=== PATIENT | female | born 1960 | race Caucasian/White ===

== ENCOUNTER 2016-09-17 01:48 | Emergency (ER) | payer OTHER ==
[~2016-09-17] VITALS: Ht 172.7 cm; Wt 99.8 kg
[2016-09-17] MEDS ORDERED: NEURONTIN 300300 M1 (02:06)
[2016-09-17] MEDS ORDERED: DILAUDID 2 MG TA2 MG (02:07)
[2016-09-17] MEDS ORDERED: GRALISE600 MG (02:07)
[2016-09-17] MEDS ORDERED: FENTANYL PA25 MCG/HR TOP (02:08)
[2016-09-17] MEDS ORDERED: IMITREX 50 MG T50 MG (02:09)
[2016-09-17 03:05] VITALS: BP 136/95
== END 2016-09-17 03:05 | disposition home or self-care (01) ==
LOC: ER 01:48
DX: S20.02XA Contusion of left breast, initial encounter (principal); Z88.6 Allergy status to analgesic agent; Z91.041 Radiographic dye allergy status; Z88.0 Allergy status to penicillin; Z88.5 Allergy status to narcotic agent; T74.21XA Adult sexual abuse, confirmed, initial encounter; Y93.89 Activity, other specified; Y92.830 Public park as the place of occurrence of the external cause; Y99.8 Other external cause status; Y07.59 Other non-family member, perpetrator of maltreatment and neglect